=== PATIENT | female | born 1985 | race Caucasian/White ===

== ENCOUNTER 2017-12-30 22:22 | Emergency (ER) | payer OTHER ==
[2017-12-30 22:30] VITALS: BP 125/71
--- NOTE | 2017-12-30 23:01 | ED Physician Documentation ---
PD HPI OPHTHO - Stated complaint Stated Complaint: DISCHARGE FROM BOTH EYES - Chief complaint Chief Complaint: Heent - History obtained from History obtained from: Patient - History of Present Illness Timing - onset: Other (Her son recently had pinkeye, she was diagnosed with pinkeye about a week ago and started on polymyxin trimethoprim drops but she continues to have eye grittiness and irritation bilaterally with clearish discharge and also mild rhinorrhea and ear pressure. No fevers. No changes in her vision, she does wear contacts but not since this diagnosis.) Review of Systems Constitutional: denies: Fever, Chills Eyes: reports: Discharge, Irritation. denies: Loss of vision, Decreased vision , Photophobia Ears: denies: Loss of hearing PD PAST MEDICAL HISTORY - Past Medical History Past Medical History: No - Past Surgical History Past Surgical History: Yes HEENT: Tonsil/Adenoidectomy - Present Medications Home Medications: Ambulatory Orders Medication Instructions Recorded Confirmed Polymyxin B/Trimeth Ophth Drop 1 drops OPTH Q3H 12/30/17 12/30/17 [Polytrim Ophth Drops] - Allergies Allergies/Adverse Reactions: Allergies Allergy/AdvReac Type Severity Reaction Status Date / Time No Known Drug Allergies Allergy Verified 12/30/17 22:30 - Social History Does the pt smoke?: No Smoking Status: Never smoker Does the pt drink ETOH?: No Does the pt have substance abuse?: No - Immunizations Immunizations are current?: Yes - POLST Patient has POLST: No PD ED PE NORMAL - Vitals Vital signs reviewed: Yes - General General: Alert and oriented X 3, No acute distress - HEENT HEENT: PERRL, EOMI, Pharynx benign, Other (Bilateral conjunctival inflammation without purulent discharge, fluorescein exam is negative. TMs are normal.) - Neuro Neuro: Alert and oriented X 3 Eye Opening: Spontaneous Motor: Obeys Commands Verbal: Oriented GCS Score: 15 - Psych Psych: Normal mood, Normal affect Results - Vitals Vitals: Vital Signs - 24 hr 12/30/17 22:27 Temperature 36.4 C L Heart Rate 73 Respiratory 16 Rate Blood Pressure 125/71 O2 Saturation 100 Oxygen O2 Source Room air Departure - Departure Disposition: 01 Home, Self Care Clinical Impression: Viral conjunctivitis of both eyes Condition: Good Record reviewed to determine appropriate education?: Yes Instructions: ED Conjunctivitis Nonspecific Comments: As discussed this is not consistent with a bacterial infection, more likely viral. Use Naphcon-A drops as directed [id number] and return if worse.
== END 2017-12-30 23:15 | disposition home or self-care (01) ==
LOC: ED 22:22
DX: B30.9 Viral conjunctivitis, unspecified (principal)
CPT/HCPCS: 99282; 99283